=== PATIENT | male | born 1960 | race Caucasian/White ===

== ENCOUNTER → 2018-12-29 | Outpatient (CLI) | payer OTHER | LOC: RAD 17:32 | DX: I77.810 Thoracic aortic ectasia (principal); I35.9 Nonrheumatic aortic valve disorder, unspecified ==

== ENCOUNTER → 2021-12-13 | Outpatient (CLI) | payer OTHER | LOC: RAD 08:37 | DX: M25.531 Pain in right wrist (principal) ==

== ENCOUNTER 2022-03-05 15:36 | Emergency (ER) | payer OTHER ==
[2022-03-05] MEDS ORDERED: ALDACTONE 25MG25 MG PO (15:49)
[2022-03-05] MEDS ORDERED: NORVASC 10MG10 MG PO (15:49)
[2022-03-05 16:04] LABS: BASO # 0.03 K/mm3 (0.02-0.10); HEMATOCRIT 44.3 % (42.0-52.0); HEMOGLOBIN 15.1 g/dL (13.5-18.0); LYMPH# 1.45 K/mm3 (1.50-4.00); MEAN CELL VOLUME 86 fl (78-100); MEAN CORPUSCULAR HEMOGLOBIN 29 pg (27-31); MEAN CORPUSCULAR HGB CONC 34 g/dL (33-37); MONO # 0.35 K/mm3 (0.20-0.80); NEU # 7.75 K/mm3 (1.40-6.50); PLATELET COUNT 229 K/mm3 (130-400); RED BLOOD COUNT 5.16 M/mm3 (4.20-5.60); RED CELL DISTRIBUTION WIDTH 13.3 % (11.5-14.5); WHITE BLOOD COUNT 9.7 K/mm3 (4.8-10.8)
[2022-03-05 16:18] LABS: ALBUMIN 4.2 g/dL (3.4-4.8); POTASSIUM 3.8 mmol/L (3.5-5.1); SODIUM 140 mmol/L (136-145)
[2022-03-05 16:19] LABS: CALCIUM 9.4 mg/dL (8.3-10.5)
[2022-03-05 16:20] LABS: GLUCOSE 132 mg/dL (75-110); TOTAL PROTEIN 7.7 g/dL (6.2-8.1)
[2022-03-05 16:21] LABS: CARBON DIOXIDE 23 mmol/L (23-31)
[2022-03-05 16:22] LABS: TOTAL BILIRUBIN 0.9 mg/dL (0.2-1.2)
[2022-03-05 16:26] LABS: AST-SGOT 24 U/L (5-34)
[2022-03-05 16:27] LABS: ALT/SGPT 28 U/L (0-55)
[2022-03-05] MEDS ORDERED: OXTELLAR XR600 MG PO (18:02)
[2022-03-05] MEDS ORDERED: LOSARTAN POTAS100 MG PO (18:04)
[2022-03-05] MEDS ORDERED: BYSTOLIC10 MG PO (18:05)
[2022-03-05] MEDS ORDERED: CYCLOBENZAPRINE10 M1 PO (18:06)
[2022-03-05 18:10] LABS: TROPONIN-I < 0.030 ng/mL (<0.030)
[2022-03-05 22:24] LABS: URINE APPEARANCE HAZY; URINE COLOR YELLOW; URINE PROTEIN(semi-quant) TRACE (NEGATIVE)
[2022-03-05 22:25] LABS: URINE BILIRUBIN NEGATIVE (NEGATIVE); URINE BLOOD NEGATIVE (NEGATIVE); URINE GLUCOSE NEGATIVE (NEGATIVE); URINE KETONE NEGATIVE (NEGATIVE); URINE LEUKOCYTE ESTERASE NEGATIVE (NEGATIVE); URINE MUCUS PRESENT (NOT PRESENT); URINE NITRATE NEGATIVE (NEGATIVE); URINE UROBILINOGEN NORMAL (NORMAL); URINE WBC 0-1 /hpf (0-3)
[2022-03-05] MEDS ORDERED: AMOXICILLIN AND1 TA2 PO (22:38)
[2022-03-05 22:51] VITALS: BP 151/95
== END 2022-03-05 22:51 | disposition home or self-care (01) ==
LOC: ED 15:36
PROVIDERS: Nurse Practitioner
DX: I16.0 Hypertensive urgency (principal); J32.9 Chronic sinusitis, unspecified; Z28.310 Unvaccinated for COVID-19
CPT/HCPCS: J1885; J2270; J2405; J3010

== ENCOUNTER 2024-11-22 08:44 | Emergency (ER) | payer MEDICARE, OTHER ==
[~2024-11-22 08:44] MED LIST: ALDACTONE 25MG25 MG PO; AMOXICILLIN AND1 TA2 PO; BYSTOLIC10 MG PO; CYCLOBENZAPRINE10 M1 PO; LOSARTAN POTAS100 MG PO; NORVASC 10MG10 MG PO; OXTELLAR XR600 MG PO; TAMIFLU 75MG75 MG PO
[2024-11-22] MEDS ORDERED: LIDOCAINE PAIN1 EACH TP (09:07)
[2024-11-22] MEDS ORDERED: VALACYCLOVIR1 GM PO (09:07)
[2024-11-22] MEDS ORDERED: PERCOCET 325 MG1 TA2 PO (09:12)
[2024-11-22] MEDS ORDERED: valACYclovir 500 MG TABLET PO ONE (09:15)
[2024-11-22 09:24] VITALS: BP 138/97
== END 2024-11-22 09:15 | disposition home or self-care (01) ==
LOC: ED 08:44
DX: B02.9 Zoster without complications (principal); E66.9 Obesity, unspecified